=== PATIENT | female | born 1955 | race Hispanic/Latino ===

== ENCOUNTER 2024-10-02 07:54 | Observation (INO) | payer MEDICARE ==
[2024-09-29 13:54] LABS: BASOPHILS % 0.8 % (0.0-1.0); EOSINOPHILS % 3.1 % (0.0-6.0); LYMPHOCYTES % 18.2 % (18.0-39.1); MONOCYTES % 8.7 % (4.4-11.3); NEUTROPHILS % 68.9 % (38.7-80.0); RED CELL DISTRIBUTION WIDTH 16.1 % (11.7-14.4)
[2024-09-29 14:21] LABS: EST GLOMERULAR FILTRATION RATE 41.0 ML/MIN (>=60)
[~2024-10-02] VITALS: Ht 157.5 cm; Wt 72.1 kg
[~2024-10-02 07:54] MED LIST: CLOPIDOGREL75 MG PO; CRESTOR40 MG PO; DOCUSATE SODIUM 100 MG CAP PO PRN; GLIPIZIDE ER10 MG PO; GLUCOPHAGE1000 MG PO; JANUMET XR 50-1 EAC1 PO; JANUVIA PO; JANUVIA25 MG PO; LASIX40 MG PO; LISINOPRIL-HCT1 EAC1 PO; METOPROLOL SUCC25 MG PO; ONDANSETRON HCL INJ 2MG/ML 2ML 2 MG/ML VIAL IV PRN; PANTOPRAZOLE SO40 MG PO; PIOGLITAZONE HC45 MG PO; SIMVASTATIN40 MG PO
[2024-10-02] MEDS ORDERED: ROPIVACAINE/EPI/CLONIDINE/KET 50 ML SYRINGE INJ ONE (08:00)
[2024-10-02] MEDS: CELECOXIB 100 MG CAP PO SCH (09:00)
[2024-10-02] MEDS ORDERED: LIDOCAINE HCL 2% LOCAL INJ 5 ML SDV VIAL INJ ONE (09:26)
[2024-10-02] MEDS ORDERED: PROPOFOL IV EMULSION 10 MG/ML 20 ML VIAL ONE (09:26)
[2024-10-02] MEDS ORDERED: FENTANYL CITRATE/PF 100MCG/2 ML INJ ONE ×2 (09:26→10:29)
[2024-10-02] MEDS ORDERED: DEXAMETHASONE SOD PHOS INJ 4 MG/ML SDV ONE (09:26)
[2024-10-02] MEDS ORDERED: ONDANSETRON HCL INJ 2MG/ML 2ML 2 MG/ML VIAL ONE (09:26)
[2024-10-02] MEDS ORDERED: SODIUM CHLORIDE 0.9% 200 ML ONE (09:28)
[2024-10-02] MEDS ORDERED: ACETAMINOPHEN 1000 MG/100 ML 100 ML IV ONE (09:28)
[2024-10-02] MEDS ORDERED: SEVOFLURANE INHAL SOLN 250 ML PEN BTL ONE (09:28)
[2024-10-02] MEDS ORDERED: EPHEDRINE SULFATE INJ 50 MG/ML VIAL ONE (10:11)
[2024-10-02] MEDS: CEFAZOLIN SODIUM 2 GM ONE (10:16)
[2024-10-02] MEDS: LACTATED RINGER'S 1,000 ML ONE (10:16)
[2024-10-02] MEDS ORDERED: METOCLOPRAMIDE HCL 10 MG/2ML VIAL ONE (10:36)
[2024-10-02] MEDS: FENTANYL CITRATE/PF 100MCG/2 ML INJ ONE (12:20)
[2024-10-02] MEDS ORDERED: LIDOCAINE 4% PATCH TP PRN (15:15)
[2024-10-02] MEDS ORDERED: DEXTROSE 50% SYRINGE 50 ML IV PRN ×2 (15:15)
[2024-10-02] MEDS ORDERED: POTASSIUM CHLORIDE 20 MEQ TAB CR PO PRN (15:15)
[2024-10-02] MEDS ORDERED: DIPHENHYDRAMINE HCL 25 MG CAP PO PRN (15:15)
[2024-10-02] MEDS ORDERED: ONDANSETRON HCL INJ 2MG/ML 2ML 2 MG/ML VIAL IV PRN (15:15)
[2024-10-02] MEDS ORDERED: DOCUSATE SODIUM 100 MG CAP PO PRN (15:15)
[2024-10-02] MEDS ORDERED: MELATONIN 5 MG TABLET PO PRN (15:15)
[2024-10-02] MEDS ORDERED: BENZONATATE 100 MG CAP PO PRN (15:15)
[2024-10-02] MEDS ORDERED: SIMETHICONE 80 MG CHEW PO PRN (15:15)
[2024-10-02] MEDS ORDERED: ALBUTEROL/IPRATROPIUM 3 ML NEB NEB PRN (15:15)
[2024-10-02] MEDS ORDERED: HYDRALAZINE HCL 20 MG/ML VIAL IV PRN (15:15)
[2024-10-02 15:50] VITALS: BP_SYST 132; BP_SYST 161; BP_DIAS 59; BP_DIAS 85; PULSE 70; PULSE 76; RESP 18; RESP 21; TEMP 97.7; TEMP 99; O2SAT 98; O2SAT 99
[2024-10-02] MEDS: HYDROCODONE/APAP 7.5MG-325MG 1 EA TAB PO PRN (16:15)
[2024-10-02] MEDS: SODIUM CHLORIDE 0.9% 1000ML 1,000 ML IV SCH (16:16)
[2024-10-02] MEDS: CEFAZOLIN SODIUM 2 GM in SODIUM CHLORIDE 0.9% 100 ML IV SCH (16:18)
[2024-10-02 16:35] VITALS: PULSE 74; RESP 20; O2SAT 96
[2024-10-02 16:50] VITALS: BP 132/59; PULSE 76; RESP 18; TEMP 97.7; O2SAT 98
[2024-10-02] MEDS ORDERED: ENOXAPARIN SOD INJ 40 MG/0.4 ML SYR SC SCH (17:00)
[2024-10-02] MEDS: INSULIN LISPRO 100 UNIT/1 ML 3ML VIAL SQ SCH (17:37)
[2024-10-02] MEDS ORDERED: ZESTRIL40 MG PO (19:01)
[2024-10-02] MEDS ORDERED: METOPROLOL TART25 MG PO (19:01)
[2024-10-02] MEDS ORDERED: AMLODIPINE BESYL5 MG PO (19:01)
[2024-10-02] MEDS ORDERED: HYDROCODON-ACE1 EAC9 PO (19:03)
[2024-10-02 19:55] VITALS: BP 132/59; PULSE 76; RESP 18; TEMP 97.7; O2SAT 98
[2024-10-02 21:05] VITALS: PULSE 72; RESP 18; O2SAT 98
[2024-10-02] MEDS: ASPIRIN 81 MG CHEW TAB PO SCH (21:13)
[2024-10-02 22:51] VITALS: BP 128/49; PULSE 63; RESP 18; TEMP 98.2; O2SAT 98
[2024-10-03] VITALS (7 sets, daily range): BP systolic 123–156; BP diastolic 45–49; PULSE 63–76; RESP 18; TEMP 97.5–98.2; O2SAT 95–100
[2024-10-03 05:48] LABS: EST GLOMERULAR FILTRATION RATE 45.0 ML/MIN (>=60)
[2024-10-03] MEDS: ENOXAPARIN SOD INJ 40 MG/0.4 ML SYR SC SCH (09:07)
[2024-10-03] MEDS: PANTOPRAZOLE SOD 40 MG TABEC PO SCH (09:07)
[2024-10-03] MEDS: CELECOXIB 200 MG CAP PO SCH (09:54)
[2024-10-03] MEDS: ACETAMINOPHEN 325 MG TAB PO PRN (11:34)
== END 2024-10-03 15:53 | disposition home health service (06) ==
LOC: OR 07:54 → PACU V 15:06 → MED/SURG 15:45
PROVIDERS: ADMIT Orthopaedic Surgery Adult Reconstructive Orthopaedic Surgery; ATTEND Orthopaedic Surgery Adult Reconstructive Orthopaedic Surgery
DX: M16.11 Unilateral primary osteoarthritis, right hip (principal); E11.9 Type 2 diabetes mellitus without complications; E78.5 Hyperlipidemia, unspecified; I10 Essential (primary) hypertension; Z79.84 Long term (current) use of oral hypoglycemic drugs; Z01.812 Encounter for preprocedural laboratory examination; Z01.818 Encounter for other preprocedural examination
CPT/HCPCS: 27130; 36415 ×3; 71046; 72170; 80048 ×2; 82948 ×2; 85025; 86850; 86900; 93005; 94799 ×2; 97110 ×2; 97116 ×2; 97161; 97530; G0378 ×2; J0131; J1100; J1650; J2003; J2405; J2470; J2704; J2765; J3010; J7030; J7050 ×2; J7121